=== PATIENT | male | born 1980 | race Asian ===

== ENCOUNTER 2022-07-07 07:32 | Outpatient (CLI) | payer OTHER ==
[2022-07-07] MEDS ORDERED: Iopamidol 300 61% 100 ML VIAL FS ONE (09:42)
== END 2022-07-07 07:33 | disposition home or self-care (01) ==
LOC: CSHCT 07:32
PROVIDERS: ATTEND Internal Medicine Hematology & Oncology
DX: C11.2 Malignant neoplasm of lateral wall of nasopharynx (principal); C78.7 Secondary malignant neoplasm of liver and intrahepatic bile duct
CPT/HCPCS: 71260; 74177; Q9967

== ENCOUNTER 2022-10-11 09:08 | Outpatient (CLI) | payer OTHER ==
[~2022-10-11 09:08] MED LIST: Iopamidol 300 61% 100 ML VIAL FS ONE; Magnevist 469MG/ML 20 ML VIAL ONE
== END 2022-10-11 09:09 | disposition home or self-care (01) ==
LOC: CSHMRI 09:08
PROVIDERS: ATTEND Internal Medicine Hematology & Oncology
DX: C11.2 Malignant neoplasm of lateral wall of nasopharynx (principal); C22.9 Malignant neoplasm of liver, not specified as primary or secondary; Z92.3 Personal history of irradiation; J32.9 Chronic sinusitis, unspecified; H74.8X3 Other specified disorders of middle ear and mastoid, bilateral
CPT/HCPCS: 70543; 71260; 74177; 82565

== ENCOUNTER 2023-02-07 13:16 | Outpatient (CLI) | payer OTHER ==
[~2023-02-07 13:16] MED LIST changes: -Magnevist 469MG/ML 20 ML VIAL ONE
== END 2023-02-07 13:17 | disposition home or self-care (01) ==
LOC: CSHCT 13:16
PROVIDERS: ATTEND Internal Medicine Hematology & Oncology
DX: C11.2 Malignant neoplasm of lateral wall of nasopharynx (principal); C78.7 Secondary malignant neoplasm of liver and intrahepatic bile duct
CPT/HCPCS: 71260; 74177

== ENCOUNTER 2023-07-04 08:53 | Outpatient (CLI) | payer OTHER ==
[2023-07-04] MEDS ORDERED: Iopamidol 300 61% 100 ML VIAL FS ONE (09:19)
[2023-07-04] MEDS ORDERED: Magnevist 469MG/ML 20 ML VIAL ONE (09:27)
== END 2023-07-04 08:54 | disposition home or self-care (01) ==
LOC: CSHCT 08:53
PROVIDERS: ATTEND Internal Medicine Hematology & Oncology
DX: C11.2 Malignant neoplasm of lateral wall of nasopharynx (principal); C22.9 Malignant neoplasm of liver, not specified as primary or secondary; H74.8X1 Other specified disorders of right middle ear and mastoid; Z92.3 Personal history of irradiation
CPT/HCPCS: 70543; 71260; 74177

== ENCOUNTER 2023-09-30 12:03 | Outpatient (CLI) | payer OTHER | END 2023-09-30 12:04 | disposition home or self-care (01) | LOC: CSHCT 12:03 | PROVIDERS: ATTEND Internal Medicine Hematology & Oncology | DX: C11.2 Malignant neoplasm of lateral wall of nasopharynx (principal); C78.7 Secondary malignant neoplasm of liver and intrahepatic bile duct | CPT/HCPCS: 70543; 71260; 74177; Q9967 ==

== ENCOUNTER 2024-02-02 11:58 | Outpatient (CLI) | payer OTHER ==
[2024-02-02] MEDS ORDERED: Iopamidol 300 61% 100 ML VIAL FS ONE (12:41)
[2024-02-02] MEDS ORDERED: Magnevist 469MG/ML 20 ML VIAL ONE (12:45)
== END 2024-02-02 11:59 | disposition home or self-care (01) ==
LOC: CSHCT 11:58
PROVIDERS: ATTEND Internal Medicine Hematology & Oncology
DX: C11.9 Malignant neoplasm of nasopharynx, unspecified (principal); J32.0 Chronic maxillary sinusitis; J32.2 Chronic ethmoidal sinusitis
CPT/HCPCS: 70543; 71260; 74177; A9579; Q9967

== ENCOUNTER 2024-04-26 07:34 | Outpatient (CLI) | payer OTHER ==
[2024-04-26] MEDS ORDERED: Iopamidol 300 61% 100 ML VIAL FS ONE (10:58)
[2024-04-26] MEDS ORDERED: Magnevist 469MG/ML 20 ML VIAL ONE (11:06)
== END 2024-04-26 07:35 | disposition home or self-care (01) ==
LOC: CSHCT 07:34
PROVIDERS: ATTEND Internal Medicine Hematology & Oncology
DX: C11.9 Malignant neoplasm of nasopharynx, unspecified (principal); C78.7 Secondary malignant neoplasm of liver and intrahepatic bile duct; G93.9 Disorder of brain, unspecified; J34.89 Other specified disorders of nose and nasal sinuses
CPT/HCPCS: 70543; 71260; 74177; A9579; Q9967

== ENCOUNTER 2024-05-15 15:00 | Outpatient (CLI) | payer OTHER | END 2024-05-15 15:01 | disposition home or self-care (01) | LOC: CSHRAD 15:00 | PROVIDERS: ATTEND Internal Medicine Hematology & Oncology | DX: C11.9 Malignant neoplasm of nasopharynx, unspecified (principal); C79.9 Secondary malignant neoplasm of unspecified site; R93.7 Abnormal findings on diagnostic imaging of other parts of musculoskeletal system; G93.9 Disorder of brain, unspecified | CPT/HCPCS: 70553; 76377 ==

== ENCOUNTER 2024-08-23 14:58 | Outpatient (CLI) | payer OTHER | END 2024-08-23 14:59 | disposition home or self-care (01) | LOC: CSHMRI 14:58 | PROVIDERS: ATTEND Radiology Radiation Oncology | DX: C79.31 Secondary malignant neoplasm of brain (principal); Z92.3 Personal history of irradiation; G93.6 Cerebral edema | CPT/HCPCS: 70553; 76376 ==

== ENCOUNTER 2024-09-26 12:12 | Outpatient (CLI) | payer OTHER ==
[~2024-09-26 12:12] MED LIST changes: -Iopamidol 300 61% 100 ML VIAL FS ONE; +Magnevist 469MG/ML 20 ML VIAL ONE
== END 2024-09-26 12:13 | disposition home or self-care (01) ==
LOC: CSHMRI 12:12
PROVIDERS: ATTEND Radiology Radiation Oncology
DX: C79.51 Secondary malignant neoplasm of bone (principal); G93.9 Disorder of brain, unspecified
CPT/HCPCS: 70553; 76376

== ENCOUNTER 2024-10-12 08:08 | Outpatient (CLI) | payer OTHER ==
[2024-10-12] MEDS ORDERED: Iopamidol 300 61% 100 ML VIAL FS ONE (13:21)
== END 2024-10-12 08:09 | disposition home or self-care (01) ==
LOC: CSHCT 08:08
PROVIDERS: ATTEND Internal Medicine Hematology & Oncology
DX: C11.2 Malignant neoplasm of lateral wall of nasopharynx (principal); C22.9 Malignant neoplasm of liver, not specified as primary or secondary
CPT/HCPCS: 71260; 74177; Q9967

== ENCOUNTER 2024-12-03 09:53 | Outpatient (CLI) | payer OTHER ==
[2024-12-03] MEDS ORDERED: Magnevist 469MG/ML 20 ML VIAL ONE (11:13)
== END 2024-12-03 09:54 | disposition home or self-care (01) ==
LOC: CSHMRI 09:53
PROVIDERS: ATTEND Radiology Radiation Oncology
DX: C79.31 Secondary malignant neoplasm of brain (principal); G93.6 Cerebral edema
CPT/HCPCS: 70553; 76376

== ENCOUNTER 2025-11-12 08:24 | Outpatient (CLI) | payer OTHER | END 2025-11-12 08:25 | disposition home or self-care (01) | LOC: CSHCT 08:24 | PROVIDERS: ATTEND Internal Medicine Hematology & Oncology | DX: C11.2 Malignant neoplasm of lateral wall of nasopharynx (principal) | CPT/HCPCS: 70491; 71260; 74177 ==